=== PATIENT | female | born 1950 | race Caucasian/White ===

== ENCOUNTER 2023-03-31 13:27 | Outpatient (CLI) | payer MEDICARE ==
[~2023-03-31 13:27] MED LIST: Iopamidol 370 76% 100 ML VIAL ONE; Magnevist 469MG/ML 20 ML VIAL ONE
== END 2023-03-31 13:28 | disposition home or self-care (01) ==
LOC: CSHCT 13:27
PROVIDERS: ATTEND Surgery
DX: G43.909 Migraine, unspecified, not intractable, without status migrainosus (principal)
CPT/HCPCS: 70496; 70553; 82565

== ENCOUNTER 2023-04-23 15:49 | Outpatient (CLI) | payer MEDICARE | END 2023-04-23 15:50 | disposition home or self-care (01) | LOC: CSHRAD 15:49 | PROVIDERS: ATTEND Surgery | DX: M54.6 Pain in thoracic spine (principal); M54.50 Low back pain, unspecified; M47.814 Spondylosis without myelopathy or radiculopathy, thoracic region; M41.9 Scoliosis, unspecified; M41.86 Other forms of scoliosis, lumbar region; M47.816 Spondylosis without myelopathy or radiculopathy, lumbar region; Z98.890 Other specified postprocedural states | CPT/HCPCS: 72070; 72100 ==